=== PATIENT | male | born 1955 | race Caucasian/White ===

== ENCOUNTER 2020-04-04 16:30 | Inpatient (IN) | payer OTHER ==
[~2020-04-04] VITALS: Ht 185.4 cm; Wt 118.0 kg
[2020-04-04] MEDS ORDERED: methylPREDNISolone SOD SUCC 125 MG/2 ML VL IV ONE (17:00)
[2020-04-04] MEDS ORDERED: AZITHROMYCIN 500MG/ 250ML 250 ML IV ONE (17:45)
[2020-04-04] MEDS ORDERED: ZINC SULFATE 220mg CAP or TAB PO ONE (17:45)
[2020-04-04] MEDS ORDERED: ASCORBIC ACID 500 MG TAB PO ONE (17:45)
[2020-04-04 18:57] LABS: Basophils # (auto) 0 10 ^3/uL (0-0.2); Basophils % (auto) 0.7 % (0.0-2.0); Eosinophils # (auto) 0.2 10 ^3/uL (0-0.8); Eosinophils % (auto) 3.5 % (0.0-7.0); Hematocrit 39.8 % (41.0-53.0); Hemoglobin 13.9 g/dL (13.5-17.5); Lymphocytes % (auto) 13.9 % (10.0-50.0); Mean Corpuscular Hemoglobin 29.1 pg (28.0-32.0); Mean Corpuscular Hgb Conc. 34.8 g/dL (32.0-36.0); Mean Corpuscular Volume 83.6 fL (80.0-100.0); Monocytes # (auto) 0.4 10 ^3/uL (0-1.3); Monocytes % (auto) 5.9 % (0.0-12.0); Neutrophils # (auto) 5.3 10 ^3/uL (1.6-8.6); Nucleated Red Blood Cells % 0.1 %; Platelet Count (auto) 299 10^3/uL (140-450); Red Blood Cells 4.76 10^6/uL (4.5-5.90); Red Cell Distribution Width 12.5 % (11.8-14.3)
[2020-04-04 19:19] LABS: Albumin 2.9 g/dL (3.4-5.0); Anion Gap 10 (5-15); Blood Urea Nitrogen 17 mg/dL (7-18); Calcium 8.5 mg/dL (8.5-10.1); Carbon Dioxide 22 mmol/L (21-32); Chloride 101 mmol/L (98-107); Glucose 169 mg/dL (74-106); Potassium 3.1 mmol/L (3.5-5.1); Sodium 133 mmol/L (136-145)
[2020-04-04 19:22] LABS: Lactic Acid w/Reflex 2.2 mmol/L (0.4-2.0)
[2020-04-04 19:28] LABS: Alanine Aminotransferase 15 U/L (16-61); Alkaline Phosphatase 67 U/L (45-117); Aspartate Aminotransferase 35 U/L (15-37); BUN/Creatinine Ratio 17.3; Bilirubin, Total 0.7 mg/dL (0.2-1.0); CRP High Sensitivity 9.26 mg/dL (< 0.3); GFR African American 99 mL/min; GFR Non-African American 82 mL/min; Total Protein 7.3 g/dL (6.4-8.2)
[2020-04-04] MEDS ORDERED: DOCUSATE SOD 100 MG CAP PO PRN (22:00)
[2020-04-04] MEDS ORDERED: ACETAMINOPHEN 325 MG TAB PO PRN (22:00)
[2020-04-04] MEDS ORDERED: HYDROcodone-ACET 5/325MG TAB PO PRN (22:00)
[2020-04-04] MEDS ORDERED: POTASSIUM CHL 20 Meq TABLET PO ONE (22:00)
[2020-04-04] MEDS ORDERED: MORPHINE SULF INJ 2 MG/ML SYRINGE 1ML IV PRN (22:00)
[2020-04-04] MEDS ORDERED: ONDANSETRON HCL 4 MG/2 ML VIAL IV PRN (22:00)
[2020-04-04] MEDS ORDERED: NITROGLYCERIN 0.4 MG SL TAB SL PRN (22:00)
[2020-04-04] MEDS ORDERED: MORPHINE SULFATE 4 MG/ML SYR/VIAL IV PRN (22:00)
[2020-04-04] MEDS ORDERED: DEXTROSE (50%) 50ML SYRG IV PRN (22:15)
[2020-04-04 22:19] LABS: Urine Bacteria NONE SEEN /hpf (None Seen); Urine Blood Negative /uL (Negative); Urine Hyaline Cast FEW /lpf (0 - 2); Urine Mucus FEW (None Seen); Urine WBC 2 /hpf (0 - 3)
[2020-04-04] MEDS: ASCORBIC ACID 500 MG TAB PO SCH (23:00)
[2020-04-04] MEDS: FAMOTIDINE 20 MG TAB PO SCH (23:00)
[2020-04-04] MEDS: SODIUM CHLOR 0.9% PF (SALINE LOCK) 10ML VIAL/SYR IV SCH (23:00)
[2020-04-05] MEDS: SODIUM CHLOR 0.9% PF (SALINE LOCK) 10ML VIAL/SYR IV SCH ×3 (06:00→21:58)
[2020-04-05] MEDS ORDERED: metFORMIN HYDROCHLORIDE 850 MG TAB PO SCH (08:00)
[2020-04-05] MEDS: ACCU-CHEK COMFORT CURVE STRIP VI SCH ×4 (08:08→21:58)
[2020-04-05 08:14] LABS: Basophils # (auto) 0 10 ^3/uL (0-0.2); Basophils % (auto) 0.4 % (0.0-2.0); Eosinophils # (auto) 0 10 ^3/uL (0-0.8); Hematocrit 43.7 % (41.0-53.0); Hemoglobin 14.9 g/dL (13.5-17.5); Lymphocytes # (auto) 0.6 10 ^3/uL (0.4-5.4); Lymphocytes % (auto) 8.8 % (10.0-50.0); Mean Corpuscular Hemoglobin 29.1 pg (28.0-32.0); Mean Corpuscular Volume 85.5 fL (80.0-100.0); Monocytes # (auto) 0.3 10 ^3/uL (0-1.3); Monocytes % (auto) 4.2 % (0.0-12.0); Neutrophils % (auto) 86.6 % (37.0-80.0); Platelet Count (auto) 368 10^3/uL (140-450); Red Blood Cells 5.11 10^6/uL (4.5-5.90); Red Cell Distribution Width 12.8 % (11.8-14.3)
[2020-04-05] MEDS: InsuLIN REG 1unit/0.01ml Soln (100units/ml) SC SCH ×4 (08:20→22:21)
[2020-04-05 08:54] LABS: Albumin 3.2 g/dL (3.4-5.0); Calcium 9.1 mg/dL (8.5-10.1); Potassium 3.7 mmol/L (3.5-5.1)
[2020-04-05 08:57] LABS: BUN/Creatinine Ratio 17.2; Bilirubin, Total 0.7 mg/dL (0.2-1.0); Total Protein 8.1 g/dL (6.4-8.2)
[2020-04-05] MEDS ORDERED: methylPREDNISolone SOD SUCC 40 MG/ML VL IV SCH ×2 (10:00)
[2020-04-05] MEDS ORDERED: AZITHROMYCIN 500MG/ 250ML 250 ML IV SCH (10:00)
[2020-04-05] MEDS: ZINC SULFATE 220mg CAP or TAB PO SCH (10:54)
[2020-04-05] MEDS: FAMOTIDINE 20 MG TAB PO SCH ×2 (10:55→21:58)
[2020-04-05] MEDS: MULTIPLE VITAMIN TAB PO SCH (10:55)
[2020-04-05] MEDS: ENOXAPARIN SOD 40 MG/0.4 ML SYRINGE SC SCH (10:55)
[2020-04-05] MEDS: ASCORBIC ACID 500 MG TAB PO SCH ×2 (10:55→21:58)
[2020-04-05] MEDS: cefTRIAXone 1GM/50ML D5W 50 ML IV SCH (14:18)
[2020-04-05] MEDS ORDERED: DexAMETHasone SOD PHOS 10MG/1ML VIAL INJ IV ONE (17:00)
[2020-04-05] MEDS ORDERED: PNEUMOCOCCAL VACC POLYS 25 MCG/0.5 ML VIAL IM ONE (19:00)
[2020-04-05] MEDS ORDERED: INFLUENZA QUAD 2020-2021 0.5 ML SYRG IM ONE (19:00)
--- NOTE | 2020-04-05 19:03 | NUR ---
Opening Shift Note Assumed care of patient, awake and alert. No S/S of distress/SOB or pain. Bed in lowest locked position, side rails up x2, call light within reach. Patient on 6 liters/minute via Oxymizer, oxygen saturation at 94%, will continue to monitor. COVID [address] Instructed on POC and to call for assist PRN, will continue to monitor for changes Q1hr and PRN.
[2020-04-05] MEDS ORDERED: METF-372 PO (19:36)
[2020-04-05] MEDS ORDERED: AMLO10TA13 PO (19:36)
[2020-04-05] MEDS ORDERED: GLIP10TA9 PO (19:36)
[2020-04-05] MEDS ORDERED: REMDESIVIR 200 MG in NS 210ml LOADING DOSE ADULT IV ONE (20:30)
--- NOTE | 2020-04-05 21:50 | NUR ---
Pre-Remdesivir vital signs: 99.7 degrees orally, 86 HR, 22 RR, 94% O2, 119/68 BP. Will continue to monitor.
[2020-04-05 22:00] VITALS: BP 128/76
--- NOTE | 2020-04-05 22:00 | NUR ---
Blood sugar 466, 426 on recheck. Will administer 10 units as ordered. floor refinisher hospitalist paged, awaiting call back at this time.
--- NOTE | 2020-04-05 22:13 | NUR ---
15 minutes after starting Remdesivir vital signs are 98.5 degrees orally, 63 HR, 20 RR, 93% O2, 125/75 BP. Will continue to monitor.
--- NOTE | 2020-04-05 22:58 | NUR ---
Post-Remdesivir vital signs: 97.6 degrees orally, 63 HR, 20 RR, 93% O2, 133/77 BP. Will continue to monitor.
--- NOTE | 2020-04-05 23:00 | NUR ---
Blood sugar reassessed, 396 at this time. Still awaiting for return call from hospitalist. Will continue care.
--- NOTE | 2020-04-06 00:09 | NUR ---
Return call from bank credit card collection clerk hospitalist Rach Pierre NP at this time, new order received for Lantus 15 units BID. Order read back and verified, will implement as ordered and continue to monitor.
[2020-04-06 05:00] VITALS: BP 133/63
[2020-04-06] MEDS: SODIUM CHLOR 0.9% PF (SALINE LOCK) 10ML VIAL/SYR IV SCH ×3 (06:00→22:22)
[2020-04-06] MEDS: ACCU-CHEK COMFORT CURVE STRIP VI SCH ×4 (06:38→22:22)
[2020-04-06] MEDS: InsuLIN REG 1unit/0.01ml Soln (100units/ml) SC SCH ×4 (06:56→22:45)
[2020-04-06] MEDS ORDERED: INSULIN LANTUS (GLARGINE) 1 /0.01ml (100units/ml) SC SCH (07:00)
--- NOTE | 2020-04-06 07:10 | NUR ---
Closing Note Patient lying in bed, awake and alert, no s/s of distress. Call light within reach. Will endorse care to dayshift RN.
--- NOTE | 2020-04-06 08:00 | NUR ---
ASSESSMENT NOTE PT IS ALERT ORIENTED X4, RESTING IN BED COMFORTABLY, ABLE TO SELF REPOSITION AND VERBALIS HIS NEEDS, APIN 0/10, 6 L OXYMIZER, USE URINAL NEEDED, CALL LIGHT WITHIN REACH
[2020-04-06] MEDS: cefTRIAXone 1GM/50ML D5W 50 ML IV SCH (08:47)
[2020-04-06 08:50] LABS: Basophils # (auto) 0 10 ^3/uL (0-0.2); Basophils % (auto) 0.3 % (0.0-2.0); Eosinophils # (auto) 0 10 ^3/uL (0-0.8); Eosinophils % (auto) 0.4 % (0.0-7.0); Hematocrit 36.6 % (41.0-53.0); Hemoglobin 12.8 g/dL (13.5-17.5); Lymphocytes % (auto) 11.3 % (10.0-50.0); Mean Corpuscular Hemoglobin 29.5 pg (28.0-32.0); Mean Corpuscular Hgb Conc. 34.8 g/dL (32.0-36.0); Mean Corpuscular Volume 84.8 fL (80.0-100.0); Monocytes # (auto) 0.4 10 ^3/uL (0-1.3); Monocytes % (auto) 4.9 % (0.0-12.0); Neutrophils # (auto) 7.4 10 ^3/uL (1.6-8.6); Neutrophils % (auto) 83.1 % (37.0-80.0); Nucleated Red Blood Cells % 0.1 %; Platelet Count (auto) 314 10^3/uL (140-450); Red Blood Cells 4.32 10^6/uL (4.5-5.90); Red Cell Distribution Width 13.1 % (11.8-14.3); White Blood Cell 8.9 10^3/uL (4.4-10.8)
[2020-04-06 08:59] VITALS: BP 112/62
[2020-04-06 08:59] LABS: BUN/Creatinine Ratio 23.3; Calcium 8.4 mg/dL (8.5-10.1); Potassium 3.8 mmol/L (3.5-5.1)
[2020-04-06] MEDS: FAMOTIDINE 20 MG TAB PO SCH ×2 (10:44→22:26)
[2020-04-06] MEDS: MULTIPLE VITAMIN TAB PO SCH (10:44)
[2020-04-06] MEDS: AZITHROMYCIN 500MG/ 250ML 250 ML IV SCH (10:44)
[2020-04-06] MEDS: ZINC SULFATE 220mg CAP or TAB PO SCH (10:44)
[2020-04-06] MEDS: ENOXAPARIN SOD 40 MG/0.4 ML SYRINGE SC SCH (10:44)
[2020-04-06] MEDS: ASCORBIC ACID 500 MG TAB PO SCH ×2 (10:44→22:26)
[2020-04-06] MEDS: DexAMETHasone SOD PHOS 10MG/1ML VIAL INJ IV SCH (10:45)
[2020-04-06 13:00] VITALS: BP 116/60
--- NOTE | 2020-04-06 16:39 | NUR ---
REMEDISIVIR INITIATED PRE SET OF VITAL SIGNS ARE TAKEN
[2020-04-06] MEDS: REMDESIVIR 100mg in NS 230ml DAILYx4DAYS (NO VENT) IV SCH (16:41)
[2020-04-06 16:49] VITALS: BP 126/75
--- NOTE | 2020-04-06 17:00 | NUR ---
PT CONTINUE TOLERATING THE REMEDISIVIR WELL CONTINUE MONITORING
--- NOTE | 2020-04-06 19:10 | NUR ---
Opening Shift Note Assumed care of patient, awake and alert. No S/S of distress/SOB or pain. Bed in lowest locked position, side rails up x2, call light within reach. Patient on 5 liters/minute via Oxymizer, oxygen saturation at 96%, will continue to monitor. COVID [address] Instructed on POC and to call for assist PRN, will continue to monitor for changes Q1hr and PRN.
[2020-04-06 22:00] VITALS: BP 135/87
[2020-04-06] MEDS: ENOXAPARIN SOD 100 MG/1 ML SYRINGE SC SCH (22:27)
[2020-04-06] MEDS: INSULIN LANTUS (GLARGINE) 1 /0.01ml (100units/ml) SC SCH (22:50)
--- NOTE | 2020-04-06 23:30 | NUR ---
Patient ambulated to restroom, heart rate on monitor worker reading 150's - 200's. Patient noted to be without Oxymizer, states that he "feels fine". Patient given nasal cannula with long tubing heart rate decreased to 60 - 70 beats per minute on 5 liters/minute. Patient educated on importance of keeping oxygen on while ambulating to the bathroom, patient verbalized understanding. Will continue to monitor.
[2020-04-07 05:00] VITALS: BP 132/66
[2020-04-07] MEDS: SODIUM CHLOR 0.9% PF (SALINE LOCK) 10ML VIAL/SYR IV SCH ×3 (06:14→21:00)
[2020-04-07] MEDS: ACCU-CHEK COMFORT CURVE STRIP VI SCH ×4 (06:40→21:00)
--- NOTE | 2020-04-07 06:42 | NUR ---
Closing Note Patient lying in bed, awake and alert, no s/s of distress. Call light within reach. Will endorse care to dayshift RN.
[2020-04-07] MEDS: InsuLIN REG 1unit/0.01ml Soln (100units/ml) SC SCH ×4 (06:52→21:21)
[2020-04-07] MEDS: INSULIN LANTUS (GLARGINE) 1 /0.01ml (100units/ml) SC SCH ×2 (06:53→21:24)
[2020-04-07 07:39] LABS: Potassium 4.2 mmol/L (3.5-5.1)
[2020-04-07 07:44] LABS: Albumin 2.4 g/dL (3.4-5.0); BUN/Creatinine Ratio 25.6
[2020-04-07 07:47] LABS: Bilirubin, Total 0.3 mg/dL (0.2-1.0)
[2020-04-07 08:00] VITALS: BP 110/58
--- NOTE | 2020-04-07 08:00 | NUR ---
ASSESSMENT NOTE PT IS ALERT ORIENTED X4, SITTING UP IN BED NO DISTRESS NOTED, ABLE TO SELF REPOSITION AND VERBALIS HIS DEMANDS, OXYGEN 5 L NC, PAIN 0/10, CALL LIGHT WITHIN REACH
[2020-04-07] MEDS: ASCORBIC ACID 500 MG TAB PO SCH ×2 (08:46→21:04)
[2020-04-07] MEDS: DexAMETHasone SOD PHOS 10MG/1ML VIAL INJ IV SCH (08:46)
[2020-04-07] MEDS: MULTIPLE VITAMIN TAB PO SCH (08:46)
[2020-04-07] MEDS: cefTRIAXone 1GM/50ML D5W 50 ML IV SCH (08:46)
[2020-04-07] MEDS: FAMOTIDINE 20 MG TAB PO SCH ×2 (08:46→21:03)
[2020-04-07] MEDS: ZINC SULFATE 220mg CAP or TAB PO SCH (08:46)
[2020-04-07] MEDS: ENOXAPARIN SOD 100 MG/1 ML SYRINGE SC SCH ×2 (08:47→21:04)
--- NOTE | 2020-04-07 09:00 | NUR ---
BM VERIFY WITH PT REGARDING HIS BM, STATED < LAST TIME WAS WHEN I CAME HERE, IT WAS A DIARRHEA > VERIFY WITH PT IF HE NEED A STOOL SOFTENER, PT STATED NO
[2020-04-07] MEDS: AZITHROMYCIN 500MG/ 250ML 250 ML IV SCH (10:33)
[2020-04-07 12:00] VITALS: BP 138/78
[2020-04-07] MEDS: REMDESIVIR 100mg in NS 230ml DAILYx4DAYS (NO VENT) IV SCH (16:47)
--- NOTE | 2020-04-07 16:48 | NUR ---
REMEDISIVIR IV INITIATED PRE SET OF VS TAKEN PT AWARE
[2020-04-07 17:00] VITALS: BP 134/78
--- NOTE | 2020-04-07 17:10 | NUR ---
VITAL SIGNS STABLE, TOLERATING REMEDISIVIR WELL
--- NOTE | 2020-04-07 18:39 | NUR ---
PT CONTINUE STABLE, CONTINUE MONITORING
--- NOTE | 2020-04-07 19:15 | NUR ---
Opening Shift Note Assumed care of patient, awake and alert. No S/S of distress/SOB or pain. Bed in lowest locked position, side rails up x2, call light within reach. Patient on 3 liters/minute via nasal cannula, oxygen saturation at 95%, will continue to monitor. COVID [address] Instructed on POC and to call for assist PRN, will continue to monitor for changes Q1hr and PRN.
[2020-04-07 21:39] VITALS: BP 141/80
--- NOTE | 2020-04-07 23:16 | NUR ---
Respiratory note: PT SEEN AND ASSESSED AT THIS TIME. NO DISTRESS NOTED. HR 52 RR 16 SP02 98% ON 3L NASAL CANNULA.
[2020-04-08 05:15] VITALS: BP 126/60
[2020-04-08] MEDS: ACCU-CHEK COMFORT CURVE STRIP VI SCH ×4 (06:26→22:29)
[2020-04-08] MEDS: SODIUM CHLOR 0.9% PF (SALINE LOCK) 10ML VIAL/SYR IV SCH ×3 (06:26→22:28)
--- NOTE | 2020-04-08 06:50 | NUR ---
Closing Note Patient lying in bed, awake and alert, no s/s of distress. Call light within reach. Will endorse care to dayshift RN.
[2020-04-08] MEDS: INSULIN LANTUS (GLARGINE) 1 /0.01ml (100units/ml) SC SCH ×2 (06:53→22:29)
[2020-04-08] MEDS: InsuLIN REG 1unit/0.01ml Soln (100units/ml) SC SCH ×4 (06:53→22:29)
[2020-04-08 08:00] VITALS: BP 153/81
--- NOTE | 2020-04-08 08:00 | NUR ---
Opening Shift Note Assumed care of patient, awake, alert and oriented X4. No S/S of distress/SOB or pain. O2 @ 3 LPM via nasal cannula with sats @ 93%. Tele# 16, sinus bradycardia @ 51 bpm. IV to right hand, 22 gauge, patent and saline locked. Instructed on POC and to call for assist PRN, verbalized understanding. Bed locked, in lowest position, call light within reach, bed alarm on for patient safety, will continue to monitor for changes Q1hr and PRN
[2020-04-08 08:34] LABS: Albumin 2.5 g/dL (3.4-5.0); Calcium 8.4 mg/dL (8.5-10.1); Potassium 3.7 mmol/L (3.5-5.1)
[2020-04-08 08:38] LABS: BUN/Creatinine Ratio 27.7; Bilirubin, Total 0.3 mg/dL (0.2-1.0); Total Protein 5.9 g/dL (6.4-8.2)
[2020-04-08] MEDS: cefTRIAXone 1GM/50ML D5W 50 ML IV SCH (09:36)
[2020-04-08] MEDS: DexAMETHasone SOD PHOS 10MG/1ML VIAL INJ IV SCH (10:03)
[2020-04-08] MEDS: AZITHROMYCIN 500MG/ 250ML 250 ML IV SCH (10:03)
[2020-04-08] MEDS: ENOXAPARIN SOD 100 MG/1 ML SYRINGE SC SCH (10:04)
[2020-04-08] MEDS: ASCORBIC ACID 500 MG TAB PO SCH ×2 (10:04→22:28)
[2020-04-08] MEDS: ZINC SULFATE 220mg CAP or TAB PO SCH (10:04)
[2020-04-08] MEDS: MULTIPLE VITAMIN TAB PO SCH (10:04)
[2020-04-08] MEDS: FAMOTIDINE 20 MG TAB PO SCH ×2 (10:04→22:28)
[2020-04-08 12:00] VITALS: BP 133/78
--- NOTE | 2020-04-08 15:47 | NUR ---
Nutrition Assessment Notes Please refer to link for full assessment notes. Est Energy needs: 5362-5190 kcals (17-20 kcal/kgBW) Est Protein needs: 94-118 gms/day (0.8-1.0 gm/kgBW) Will continue to monitor and reassess prn. Addendum: 04/08/20 at [address] Amended: Links added.
[2020-04-08 16:00] VITALS: BP 118/74
--- NOTE | 2020-04-08 17:00 | NUR ---
REDESIVIR Vitals 118/74 57 18 94%
--- NOTE | 2020-04-08 17:15 | NUR ---
REDESIVIR Vitals 121/78 54 18 95%
[2020-04-08] MEDS: REMDESIVIR 100mg in NS 230ml DAILYx4DAYS (NO VENT) IV SCH (17:53)
--- NOTE | 2020-04-08 18:00 | NUR ---
POST REMDESIVIR Vitals 128/82 56 18 96%
--- NOTE | 2020-04-08 19:05 | NUR ---
Care endorsed to DIGNA Mendoza, night nurse.
--- NOTE | 2020-04-08 19:45 | NUR ---
TELE BOX READING OF HR 200 PATIENT UP TO BATHROOM BRUSHING TEETH, PULSE TAKEN AT WRIST IS 64. ASSISTED PATIENT BACK TO BEDSIDE CHAIR. TELE BOX PULSE READING HR 60. PATIENT IS COMFORTABLE.
[2020-04-08 22:00] VITALS: BP 138/83
[2020-04-09] VITALS (8 sets, daily range): BP systolic 108–139; BP diastolic 54–87
[2020-04-09] MEDS: INSULIN LANTUS (GLARGINE) 1 /0.01ml (100units/ml) SC SCH ×2 (07:00→21:50)
[2020-04-09] MEDS: InsuLIN REG 1unit/0.01ml Soln (100units/ml) SC SCH ×4 (07:00→21:49)
[2020-04-09] MEDS: ACCU-CHEK COMFORT CURVE STRIP VI SCH ×4 (07:00→21:48)
[2020-04-09] MEDS: SODIUM CHLOR 0.9% PF (SALINE LOCK) 10ML VIAL/SYR IV SCH ×3 (07:00→21:48)
--- NOTE | 2020-04-09 07:45 | NUR ---
CLOSING NOTE- NOC SHIFT REPORT GIVEN TO DAY SHIFT RN. PATIENT IS COMFORTABLE IN BED. NO S/SX OF DISTRESS OR SOB.
[2020-04-09 07:49] LABS: Basophils # (auto) 0 10 ^3/uL (0-0.2); Basophils % (auto) 0.3 % (0.0-2.0); Eosinophils # (auto) 0.1 10 ^3/uL (0-0.8); Eosinophils % (auto) 1.4 % (0.0-7.0); Hemoglobin 13.2 g/dL (13.5-17.5); Lymphocytes # (auto) 1.6 10 ^3/uL (0.4-5.4); Lymphocytes % (auto) 25.2 % (10.0-50.0); Mean Corpuscular Hgb Conc. 33.8 g/dL (32.0-36.0); Mean Corpuscular Volume 85.6 fL (80.0-100.0); Monocytes # (auto) 0.4 10 ^3/uL (0-1.3); Monocytes % (auto) 6.4 % (0.0-12.0); Neutrophils # (auto) 4.3 10 ^3/uL (1.6-8.6); Neutrophils % (auto) 66.7 % (37.0-80.0); Nucleated Red Blood Cells % 0.1 %; Platelet Count (auto) 314 10^3/uL (140-450); Red Blood Cells 4.55 10^6/uL (4.5-5.90); White Blood Cell 6.5 10^3/uL (4.4-10.8)
[2020-04-09 08:12] LABS: Anion Gap 5 (5-15); Blood Urea Nitrogen 21 mg/dL (7-18); Calcium 8.4 mg/dL (8.5-10.1); Carbon Dioxide 27 mmol/L (21-32); Chloride 107 mmol/L (98-107); Glucose 122 mg/dL (74-106); Potassium 3.7 mmol/L (3.5-5.1); Sodium 139 mmol/L (136-145)
[2020-04-09 08:17] LABS: BUN/Creatinine Ratio 26.9; GFR African American 129 mL/min; GFR Non-African American 107 mL/min
[2020-04-09 08:37] LABS: Cholesterol 126 mg/dL (< 200)
[2020-04-09 08:40] LABS: HDL Cholesterol 32 mg/dL (40-59); LDL Cholesterol 75 mg/dL (< 100); Triglycerides 146 mg/dL (< 150)
[2020-04-09] MEDS: cefTRIAXone 1GM/50ML D5W 50 ML IV SCH (08:44)
[2020-04-09] MEDS: AZITHROMYCIN 500MG/ 250ML 250 ML IV SCH (10:03)
[2020-04-09] MEDS: FAMOTIDINE 20 MG TAB PO SCH ×2 (10:03→21:48)
[2020-04-09] MEDS: ZINC SULFATE 220mg CAP or TAB PO SCH (10:03)
[2020-04-09] MEDS: ASCORBIC ACID 500 MG TAB PO SCH ×2 (10:03→21:48)
[2020-04-09] MEDS: MULTIPLE VITAMIN TAB PO SCH (10:03)
[2020-04-09] MEDS: DexAMETHasone SOD PHOS 10MG/1ML VIAL INJ IV SCH (10:03)
[2020-04-09] MEDS: ENOXAPARIN SOD 40 MG/0.4 ML SYRINGE SC SCH (10:04)
--- NOTE | 2020-04-09 10:15 | NUR ---
IV removal IV not working. IV DC'd with clean sterile technique, catheter fully intact. Pressure dressing applied to site. Patient tolerated well.
--- NOTE | 2020-04-09 10:25 | NUR ---
IV insertion IV access obtained, via clean sterile technique by inserting 22 gauge catheter to the right forearm after 1 attempt. IV secured properly. No trauma to site. Patient tolerated well.
--- NOTE | 2020-04-09 12:25 | NUR ---
Dr Mitchell bedside with patient
[2020-04-09] MEDS: REMDESIVIR 100mg in NS 230ml DAILYx4DAYS (NO VENT) IV SCH (17:07)
--- NOTE | 2020-04-09 19:25 | NUR ---
OPENING NOTE- NOC SHIFT RECEIVED REPORT FROM DAY SHIFT RN. PATIENT IS SITTING UP ON BEDSIDE CHAIR. PATIETNT IS ALERT AND ORIENTED X4, ANSWERS IN COMPLETE SENTENCES AND MAKES APPROPRIATE EYE CONTACT. PATIENT IS ON 3L NC. NO S/SX OF DISTRESS OR SOB. PATIENT DENIES PAIN AT THIS TIME. DISCUSSED POC WITH PATIENT AND INSTRUCTED PATIENT TO CALL PRN; PATIENT VERBALIZED UNDERSTANDING. PATIENT IS ON CONTINUOS EKG AND PULSE OX MONITOR. BEDSIDE TABLE WITHIN REACH, CALL LIGHT WITHIN REACH.
[2020-04-10 05:00] VITALS: BP 122/66
[2020-04-10 06:10] LABS: Basophils # (auto) 0.1 10 ^3/uL (0-0.2); Basophils % (auto) 1.1 % (0.0-2.0); Eosinophils # (auto) 0.1 10 ^3/uL (0-0.8); Eosinophils % (auto) 1.5 % (0.0-7.0); Hematocrit 39.4 % (41.0-53.0); Hemoglobin 13.5 g/dL (13.5-17.5); Lymphocytes # (auto) 1.8 10 ^3/uL (0.4-5.4); Lymphocytes % (auto) 25.9 % (10.0-50.0); Mean Corpuscular Hemoglobin 29.5 pg (28.0-32.0); Mean Corpuscular Hgb Conc. 34.3 g/dL (32.0-36.0); Mean Corpuscular Volume 85.9 fL (80.0-100.0); Monocytes # (auto) 0.5 10 ^3/uL (0-1.3); Monocytes % (auto) 6.9 % (0.0-12.0); Neutrophils # (auto) 4.5 10 ^3/uL (1.6-8.6); Neutrophils % (auto) 64.6 % (37.0-80.0); Nucleated Red Blood Cells % 0.1 %; Platelet Count (auto) 312 10^3/uL (140-450); Red Blood Cells 4.59 10^6/uL (4.5-5.90); Red Cell Distribution Width 12.8 % (11.8-14.3)
[2020-04-10] MEDS: ACCU-CHEK COMFORT CURVE STRIP VI SCH ×2 (06:24→12:08)
[2020-04-10] MEDS: SODIUM CHLOR 0.9% PF (SALINE LOCK) 10ML VIAL/SYR IV SCH (06:24)
[2020-04-10] MEDS: InsuLIN REG 1unit/0.01ml Soln (100units/ml) SC SCH ×2 (06:25→12:12)
[2020-04-10] MEDS: INSULIN LANTUS (GLARGINE) 1 /0.01ml (100units/ml) SC SCH (06:26)
[2020-04-10 06:27] LABS: BUN/Creatinine Ratio 19.6; Calcium 8.3 mg/dL (8.5-10.1); Potassium 4.1 mmol/L (3.5-5.1)
--- NOTE | 2020-04-10 07:15 | NUR ---
Respiratory note: PT ASSESSED PT FOUND ON 1 LPM HR 47, RR 16, SPO2 96%. PT IN NO DISTRESS AT THIS TIME. WILL CONTINUE TO MONITOR. PT AWARE TO HAVE RT PAGED IF SOB.
[2020-04-10 07:45] LABS: Albumin 2.6 g/dL (3.4-5.0); Bilirubin, Direct 0.1 mg/dL (0-0.2)
[2020-04-10 07:48] LABS: Bilirubin, Total 0.3 mg/dL (0.2-1.0); Total Protein 5.7 g/dL (6.4-8.2)
[2020-04-10 08:40] VITALS: BP 126/69
[2020-04-10] MEDS ORDERED: POTASSIUM CHL 20MEQ/100ML 100 ML IV SCH (09:45)
[2020-04-10] MEDS: ZINC SULFATE 220mg CAP or TAB PO SCH (09:50)
[2020-04-10] MEDS: DexAMETHasone SOD PHOS 10MG/1ML VIAL INJ IV SCH (09:50)
[2020-04-10] MEDS: cefTRIAXone 1GM/50ML D5W 50 ML IV SCH (09:50)
[2020-04-10] MEDS: MULTIPLE VITAMIN TAB PO SCH (09:51)
[2020-04-10] MEDS: ASCORBIC ACID 500 MG TAB PO SCH (09:51)
[2020-04-10] MEDS: FAMOTIDINE 20 MG TAB PO SCH (09:52)
[2020-04-10] MEDS: ENOXAPARIN SOD 40 MG/0.4 ML SYRINGE SC SCH (09:52)
[2020-04-10] MEDS: AZITHROMYCIN 500MG/ 250ML 250 ML IV SCH (10:53)
[2020-04-10 12:03] VITALS: BP 146/85
--- NOTE | 2020-04-10 12:59 | NUR ---
DR RAYA AT BEDSIDE WITH PATIENT
[2020-04-10] MEDS ORDERED: DEX4T PO (13:02)
[2020-04-10] MEDS ORDERED: DOXY-286 PO (13:02)
--- NOTE | 2020-04-10 13:10 | NUR ---
PT SAT O2 AT 94% ON ROOM AIR
--- NOTE | 2020-04-10 13:15 | NUR ---
OPENING SHIFT NOTE Assumed care of patient from Kelly SAWYER. Patient is alert and oriented and currently on RA with no S/S of distress or SOB noted at this time. Patient denies any pain at this time. POC discussed with patient in detailed, all questions answered and patient verbalized understanding. Patient is ambulatory without assist. Bed in lowest position, locked, side rails up x2. Call light within reach and patient is encouraged to call for assistance as needed. Will continue to monitor PRN Q1hr.
--- NOTE | 2020-04-10 14:29 | NUR ---
HARISH attempted initial assessment via telephone, patient decline to talk at that moment. Addendum: 04/10/20 at 1431 by CAROL FULLER SS Amended: Links added.
[2020-04-10 15:37] VITALS: BP 125/85
--- NOTE | 2020-04-10 16:20 | NUR ---
IV removal IV DC'd with clean sterile technique, catheter fully intact. Pressure dressing applied to site. Patient tolerated well.
--- NOTE | 2020-04-10 16:25 | NUR ---
TELE BOX REMOVED Tele box removed from patient and sent to tele monitor
--- NOTE | 2020-04-10 16:30 | NUR ---
PATIENT DISCHARGED All discharge paperwork explained to patient in detail and all questions answered, patient verbalized understanding. Patient is aware of follow up appointment with primary care physician an verbalizes understanding. Patient transferred off of unit without incident.
== END 2020-04-10 16:47 | disposition home or self-care (01) | DRG 177 ==
LOC: ER 16:30 → TELE 16:31 → TELE-EAST 17:55
PROVIDERS: ADMIT Nurse Practitioner Family; ATTEND Internal Medicine Pulmonary Disease
PROC: XW033E5 Introduction of Remdesivir Anti-infective into Peripheral Vein, Percutaneous Approach, New Technology Group 5 (ICD-10-PCS; principal; 2020-04-05)
DX: U07.1 COVID-19 (principal); J12.89 Other viral pneumonia; J96.01 Acute respiratory failure with hypoxia; J44.0 Chronic obstructive pulmonary disease with (acute) lower respiratory infection; J44.1 Chronic obstructive pulmonary disease with (acute) exacerbation; D68.59 Other primary thrombophilia; E11.9 Type 2 diabetes mellitus without complications; E66.01 Morbid (severe) obesity due to excess calories; E87.6 Hypokalemia; F32.9 Major depressive disorder, single episode, unspecified; I10 Essential (primary) hypertension; Z80.9 Family history of malignant neoplasm, unspecified; Z83.3 Family history of diabetes mellitus; Z87.891 Personal history of nicotine dependence; Z68.34 Body mass index [BMI] 34.0-34.9, adult
CPT/HCPCS: 36415; 36600; 71045; 71250; 80048; 80053; 80061; 80076; 81001; 82728; 82805; 82962; 83036; 83605; 83880; 84484; 85025; 85379; 86141; 87040; 87426; 93005; 93970; G0378; J0696; J1100; J1815

== ENCOUNTER → 2021-01-15 | Outpatient (CLI) | payer MEDICARE, BC ==
[~2021-01-15] MED LIST: AMLO-496 PO; DEX4T PO; GLIP10TA9 PO; METF-372 PO
[2021-01-15 11:00] LABS: Basophils # (auto) 0.1 10 ^3/uL (0-0.2); Basophils % (auto) 1.2 % (0.0-2.0); Eosinophils # (auto) 0.4 10 ^3/uL (0-0.8); Eosinophils % (auto) 5.1 % (0.0-7.0); Hemoglobin 15.4 g/dL (13.5-17.5); Lymphocytes # (auto) 2.1 10 ^3/uL (0.4-5.4); Lymphocytes % (auto) 28.1 % (10.0-50.0); Mean Corpuscular Hemoglobin 30.3 pg (28.0-32.0); Mean Corpuscular Hgb Conc. 35.8 g/dL (32.0-36.0); Mean Corpuscular Volume 84.7 fL (80.0-100.0); Monocytes # (auto) 0.4 10 ^3/uL (0-1.3); Monocytes % (auto) 5.4 % (0.0-12.0); Neutrophils # (auto) 4.4 10 ^3/uL (1.6-8.6); Neutrophils % (auto) 60.2 % (37.0-80.0); Nucleated Red Blood Cells % 0.1 %; Red Blood Cells 5.07 10^6/uL (4.5-5.90); Red Cell Distribution Width 12.5 % (11.8-14.3); White Blood Cell 7.3 10^3/uL (4.4-10.8)
[2021-01-15 11:16] LABS: Urine Bacteria NONE SEEN /hpf (None Seen); Urine Blood Negative /uL (Negative); Urine Mucus FEW (None Seen); Urine WBC 1 /hpf (0 - 3)
[2021-01-15 11:38] LABS: Albumin 3.6 g/dL (3.4-5.0); Calcium 8.4 mg/dL (8.5-10.1); Potassium 3.6 mmol/L (3.5-5.1)
[2021-01-15 11:43] LABS: BUN/Creatinine Ratio 13.7; Bilirubin, Total 0.9 mg/dL (0.2-1.0); Total Protein 7.1 g/dL (6.4-8.2)
== END | disposition home or self-care (01) ==
LOC: LAB 10:25
PROVIDERS: ATTEND Student in an Organized Health Care Education/Training Program
DX: E11.9 Type 2 diabetes mellitus without complications (principal); I10 Essential (primary) hypertension; N40.1 Benign prostatic hyperplasia with lower urinary tract symptoms; U07.1 COVID-19
CPT/HCPCS: 36415; 80053; 80061; 81001; 82043; 83036; 84153; 84443; 85025

== ENCOUNTER → 2021-05-19 | Outpatient (CLI) | payer MEDICARE, BC ==
[2021-05-19 16:39] LABS: Potassium 4.3 mmol/L (3.5-5.1)
[2021-05-19 16:47] LABS: BUN/Creatinine Ratio 14.1; Calcium 8.3 mg/dL (8.5-10.1)
[2021-05-19 16:57] LABS: Micro Albumin 80.1 mg/L (0-30.0)
== END | disposition home or self-care (01) ==
LOC: LAB 15:44
PROVIDERS: ATTEND Student in an Organized Health Care Education/Training Program
DX: E11.9 Type 2 diabetes mellitus without complications (principal); Z12.11 Encounter for screening for malignant neoplasm of colon; I10 Essential (primary) hypertension
CPT/HCPCS: 36415; 80048; 80061; 82043; 82274; 83036

== ENCOUNTER → 2022-02-03 | Outpatient (CLI) | payer MEDICARE, BC ==
[2022-02-03 14:44] LABS: Basophils # (auto) 0.1 10 ^3/uL (0-0.2); Basophils % (auto) 1.1 % (0.0-2.0); Eosinophils # (auto) 0.3 10 ^3/uL (0-0.8); Eosinophils % (auto) 4.1 % (0.0-7.0); Hematocrit 45.4 % (41.0-53.0); Hemoglobin 15.4 g/dL (13.5-17.5); Lymphocytes # (auto) 1.6 10 ^3/uL (0.4-5.4); Lymphocytes % (auto) 23.4 % (10.0-50.0); Mean Corpuscular Hemoglobin 28.8 pg (28.0-32.0); Mean Corpuscular Hgb Conc. 33.8 g/dL (32.0-36.0); Mean Corpuscular Volume 85.1 fL (80.0-100.0); Monocytes # (auto) 0.3 10 ^3/uL (0-1.3); Monocytes % (auto) 4.4 % (0.0-12.0); Neutrophils # (auto) 4.7 10 ^3/uL (1.6-8.6); Red Blood Cells 5.33 10^6/uL (4.5-5.90); Red Cell Distribution Width 12.9 % (11.8-14.3)
[2022-02-03 14:51] LABS: Urine Bacteria NONE SEEN /hpf (None Seen); Urine Blood Negative /uL (Negative); Urine Specific Gravity 1.019 (1.001-1.035); Urine WBC <1 /hpf (0 - 3)
[2022-02-03 15:37] LABS: Calcium 9.4 mg/dL (8.5-10.1); Potassium 4.6 mmol/L (3.5-5.1)
[2022-02-03 15:43] LABS: Micro Albumin 75.7 mg/L (0-30.0)
[2022-02-03 15:54] LABS: BUN/Creatinine Ratio 17.6; Bilirubin, Total 0.7 mg/dL (0.2-1.0)
== END | disposition home or self-care (01) ==
LOC: LAB 14:08
PROVIDERS: ATTEND Student in an Organized Health Care Education/Training Program
DX: E11.9 Type 2 diabetes mellitus without complications (principal); I10 Essential (primary) hypertension
CPT/HCPCS: 36415; 80053; 80061; 81001; 82043; 82570; 83036; 84443; 85025

== ENCOUNTER → 2022-11-06 | Outpatient (CLI) | payer MEDICARE, BC ==
[2022-11-06 14:52] LABS: Urine Bacteria NONE SEEN /hpf (None Seen); Urine Blood Negative /uL (Negative); Urine Mucus FEW (None Seen); Urine Specific Gravity 1.017 (1.001-1.035); Urine WBC <1 /hpf (0 - 3)
[2022-11-06 14:56] LABS: Basophils # (auto) 0.1 10 ^3/uL (0-0.2); Basophils % (auto) 0.8 % (0.0-2.0); Eosinophils # (auto) 0.2 10 ^3/uL (0-0.8); Eosinophils % (auto) 3.9 % (0.0-7.0); Hematocrit 43.5 % (41.0-53.0); Hemoglobin 15.1 g/dL (13.5-17.5); Lymphocytes # (auto) 1.4 10 ^3/uL (0.4-5.4); Lymphocytes % (auto) 22.1 % (10.0-50.0); Mean Corpuscular Hemoglobin 29.9 pg (28.0-32.0); Mean Corpuscular Hgb Conc. 34.7 g/dL (32.0-36.0); Mean Corpuscular Volume 86.2 fL (80.0-100.0); Monocytes # (auto) 0.3 10 ^3/uL (0-1.3); Neutrophils # (auto) 4.4 10 ^3/uL (1.6-8.6); Neutrophils % (auto) 68.2 % (37.0-80.0); Nucleated Red Blood Cells % 0.1 %; Red Blood Cells 5.05 10^6/uL (4.5-5.90); Red Cell Distribution Width 12.9 % (11.8-14.3); White Blood Cell 6.4 10^3/uL (4.4-10.8)
[2022-11-06 15:55] LABS: Calcium 8.9 mg/dL (8.5-10.1); Potassium 4.2 mmol/L (3.5-5.1)
[2022-11-06 16:05] LABS: BUN/Creatinine Ratio 16.7 (10.0-20.0); Bilirubin, Total 0.7 mg/dL (0.2-1.0)
== END | disposition home or self-care (01) ==
LOC: LAB 14:21
PROVIDERS: ATTEND Student in an Organized Health Care Education/Training Program
DX: Z12.11 Encounter for screening for malignant neoplasm of colon (principal); E11.65 Type 2 diabetes mellitus with hyperglycemia
CPT/HCPCS: 36415; 80053; 80061; 81001; 83036; 85025

== ENCOUNTER → 2023-12-23 | Outpatient (CLI) | payer MEDICARE, BC ==
[~2023-12-23] MED LIST changes: -AMLO-496 PO; +AMLO1TAB23 PO
[2023-12-23 10:13] LABS: Urine Bacteria None Seen /hpf (None Seen)
[2023-12-23 10:18] LABS: Basophils # (auto) 0.1 10 ^3/uL (0-0.2); Eosinophils # (auto) 0.3 10 ^3/uL (0-0.8); Eosinophils % (auto) 3.5 % (0.0-7.0); Hematocrit 44.1 % (41.0-53.0); Hemoglobin 15.4 g/dL (13.5-17.5); Lymphocytes # (auto) 1.9 10 ^3/uL (0.4-5.4); Lymphocytes % (auto) 25.9 % (10.0-50.0); Mean Corpuscular Hemoglobin 30.2 pg (28.0-32.0); Mean Corpuscular Hgb Conc. 34.9 g/dL (32.0-36.0); Mean Corpuscular Volume 86.4 fL (80.0-100.0); Monocytes # (auto) 0.5 10 ^3/uL (0-1.3); Monocytes % (auto) 6.5 % (0.0-12.0); Neutrophils # (auto) 4.6 10 ^3/uL (1.6-8.6); Neutrophils % (auto) 63.1 % (37.0-80.0); Red Cell Distribution Width 12.9 % (11.8-14.3); White Blood Cell 7.3 10^3/uL (4.4-10.8)
[2023-12-23 10:35] LABS: Urine Blood Negative /uL (Negative); Urine Clarity Clear (Clear); Urine Color Light-Yellow (Yellow); Urine Protein, UAD TRACE (Negative); Urine Specific Gravity 1.031 (1.001-1.035); Urine Urobilinogen Normal (Negative); Urine WBC <1 /hpf (0 - 3)
[2023-12-23 11:13] LABS: Albumin 4.4 g/dL (3.2-4.8); Alkaline Phosphatase 74 U/L (46-116); Anion Gap 7 (5-15); Aspartate Aminotransferase 13 U/L (13-40); Blood Urea Nitrogen 14 mg/dL (9-23); Calcium 9.4 mg/dL (8.5-10.1); Carbon Dioxide 24 mmol/L (20-30); Chloride 105 mmol/L (98-107); Cholesterol 187 mg/dL (< 200); Glucose 263 mg/dL (74-106); LDL Cholesterol 128 mg/dL (< 100); Potassium 4.3 mmol/L (3.5-5.1); Sodium 136 mmol/L (136-145); Triglycerides 169 mg/dL (< 150)
[2023-12-23 11:14] LABS: Bilirubin, Total 0.9 mg/dL (0.2-1.0); HDL Cholesterol 38 mg/dL (40-59); Total Protein 6.8 g/dL (5.7-8.2)
[2023-12-23 11:15] LABS: Creatinine, Urine 114.01 mg/dL (30.0-125.0)
[2023-12-23 11:23] LABS: Alanine Aminotransferase < 9 U/L (7-40)
== END | disposition home or self-care (01) ==
LOC: LAB 10:00
PROVIDERS: ATTEND Student in an Organized Health Care Education/Training Program
DX: E11.9 Type 2 diabetes mellitus without complications (principal); I10 Essential (primary) hypertension
CPT/HCPCS: 36415; 80053; 80061; 81001; 82043; 82570; 83036; 85025

== ENCOUNTER 2024-11-13 11:46 | Outpatient (CLI) | payer MEDICARE, BC ==
[2024-11-13 11:59] LABS: Urine Bacteria None Seen /hpf (None Seen)
[2024-11-13 12:10] LABS: Basophils # (auto) 0.1 10 ^3/uL (0-0.2); Basophils % (auto) 1.2 % (0.0-2.0); Eosinophils # (auto) 0.4 10 ^3/uL (0-0.8); Eosinophils % (auto) 5.6 % (0.0-7.0); Hematocrit 44.2 % (41.0-53.0); Hemoglobin 15.6 g/dL (13.5-17.5); Lymphocytes % (auto) 27.3 % (10.0-50.0); Mean Corpuscular Hemoglobin 29.9 pg (28.0-32.0); Mean Corpuscular Hgb Conc. 35.3 g/dL (32.0-36.0); Mean Corpuscular Volume 84.8 fL (80.0-100.0); Monocytes # (auto) 0.4 10 ^3/uL (0-1.3); Monocytes % (auto) 5.3 % (0.0-12.0); Neutrophils # (auto) 4.4 10 ^3/uL (1.6-8.6); Neutrophils % (auto) 60.6 % (37.0-80.0); Nucleated Red Blood Cells % 0.1 %; Platelet Count (auto) 221 10^3/uL (140-450); Red Blood Cells 5.21 10^6/uL (4.5-5.90); Red Cell Distribution Width 13.3 % (11.8-14.3); White Blood Cell 7.3 10^3/uL (4.4-10.8)
[2024-11-13 12:29] LABS: Urine Blood Negative /uL (Negative); Urine Clarity Clear (Clear); Urine Color Light-Yellow (Yellow); Urine Protein, UAD Negative (Negative); Urine Specific Gravity 1.021 (1.001-1.035); Urine Squamous Epithelial Cell None Seen /hpf (<5); Urine Urobilinogen Normal (Negative); Urine WBC 1 /HPF (0-3)
[2024-11-13 12:57] LABS: Creatinine, Urine 79.99 mg/dL (30.0-125.0); Urine Protein/Creatinine Ratio 0.19
[2024-11-13 13:02] LABS: Alkaline Phosphatase 72 U/L (46-116); Calcium 9.3 mg/dL (8.7-10.4); Carbon Dioxide 24 mmol/L (20-31); Chloride 104 mmol/L (98-107)
[2024-11-13 13:03] LABS: Alanine Aminotransferase < 9 U/L (7-40); Albumin 4.6 g/dL (3.2-4.8); Anion Gap 8 (5-15); Aspartate Aminotransferase 11 U/L (13-40); Bilirubin, Total 0.8 mg/dL (0.2-1.0); Blood Urea Nitrogen 17 mg/dL (9-23); Glucose 253 mg/dL (74-106); Potassium 4.3 mmol/L (3.5-5.1); Sodium 136 mmol/L (136-145); Total Protein 6.9 g/dL (5.7-8.2)
[2024-11-13 13:36] LABS: Cholesterol 192 mg/dL (< 200)
[2024-11-13 13:37] LABS: HDL Cholesterol 38 mg/dL (40-59); LDL Cholesterol 124 mg/dL (< 100); Triglycerides 230 mg/dL (< 150)
== END 2024-11-13 17:00 | disposition home or self-care (01) ==
LOC: LAB 11:46
PROVIDERS: ATTEND Student in an Organized Health Care Education/Training Program
DX: I10 Essential (primary) hypertension (principal); E11.9 Type 2 diabetes mellitus without complications; R35.1 Nocturia
CPT/HCPCS: 36415; 80053; 80061; 81001; 82043; 82570; 83036; 84153; 84156; 84443; 85025